=== PATIENT | female | born 2000 | race Caucasian/White ===

== ENCOUNTER 2021-10-22 09:08 | Emergency (ER) | payer OTHER ==
[~2021-10-22] VITALS: Ht 154.9 cm; Wt 45.5 kg
[2021-10-22 09:23] VITALS: TEMP 98
[2021-10-22 10:41] LABS: COLLECTION METHOD CLEAN CATCH
[2021-10-22 10:46] LABS: BASO # 0.1 K/mm3 (0.0-0.2); EOS # 0.1 K/mm3 (0.0-0.7); EOS % 1.5 % (0.0-4.0); GRAN # 3.3 K/mm3 (1.4-6.5); GRAN % 48.6 % (42.2-75.2); HEMOGLOBIN 11.5 g/dl (12.0-15.0); LYMPH # 2.7 K/mm3 (1.2-3.4); LYMPH % 40.4 % (20.0-51.0); MEAN CELL VOLUME 84 fl (80.0-95.0); MEAN CORPUSCULAR HEMOGLOBIN 29 pg (26-32); MEAN CORPUSCULAR HGB CONC 35 g/dl (33.0-37.0); MEAN PLATELET VOLUME 9.9 fl (7.4-10.4); MONO # 0.6 K/mm3 (0.1-0.6); MONO % 8.4 % (1.7-9.3); PLATELET COUNT 233 K/mm3 (130-400); RED BLOOD COUNT 3.95 M/mm3 (4.10-5.30); REDCELL DISTRIBUTION WIDTH-CV 11.8 % (11.5-14.5)
[2021-10-22 10:53] LABS: HEMATOCRIT 33.3 % (35.0-45.0)
[2021-10-22 10:59] LABS: MUCOUS Present (NOT PRESENT); URINE APPEARANCE Hazy (CLEAR/HAZY); URINE BACTERIA Rare /hpf (NONE SEEN); URINE COLOR Yellow (YELLOW); URINE RBC 0-2 /hpf (0-2)
[2021-10-22 11:00] LABS: URINE BLOOD Negative (NEGATIVE); URINE GLUCOSE Negative (NEGATIVE); URINE KETONE Negative (NEGATIVE); URINE NITRATE Negative (NEGATIVE); URINE PROTEIN(semi-quant) Negative (NEGATIVE); URINE UROBILINOGEN 0.2 E.U/dL (0.2-1.0)
[2021-10-22 11:04] LABS: ALANINE AMINOTRANSFERASE 11 U/L (0-55); ALBUMIN 4.1 gm/dL (3.5-5.0); ALKALINE PHOSPHATASE 52 U/L (40-150); ANION GAP 9 mmol/L (7-16); AST,SGOT 14 U/L (5-34); BILIRUBIN,TOTAL 0.6 mg/dL (0.2-1.2); BLOOD UREA NITROGEN 11 mg/dL (7-19); CALCIUM 9.5 mg/dL (8.4-10.2); CARBON DIOXIDE 25 mmol/L (22-29); CHLORIDE 106 mmol/L (98-107); CREATININE, serum 0.64 mg/dL (0.57-1.11); GLUCOSE 85 mg/dL (70-99); LIPASE 12 U/L (8-78); POTASSIUM 3.7 mmol/L (3.5-4.5); SODIUM 140 mmol/L (136-145); TOTAL PROTEIN 6.9 gm/dL (6.2-8.1)
[2021-10-22 11:05] LABS: C-REACTIVE PROTEIN < 0.02 mg/dL (0.00-0.50)
[2021-10-22] MEDS ORDERED: BENTYL 10MG10 MG/CAP PO (11:46)
[2021-10-22 11:57] VITALS: BP 115/75; PULSE 70
== END 2021-10-22 11:57 | disposition home or self-care (01) ==
LOC: COL.ER 09:08
PROVIDERS: Family Medicine
DX: R10.30 Lower abdominal pain, unspecified (principal); Z87.891 Personal history of nicotine dependence; Z32.02 Encounter for pregnancy test, result negative; Z20.822 Contact with and (suspected) exposure to COVID-19
CPT/HCPCS: J2405; J7120

== ENCOUNTER 2022-01-21 22:11 | Emergency (ER) | payer MEDICAID ==
[~2022-01-21] VITALS: Ht 157.5 cm; Wt 43.3 kg
[~2022-01-21 22:11] MED LIST: BENTYL 10MG10 MG/CAP PO
[2022-01-21 22:17] VITALS: BP 117/78; PULSE 92; TEMP 97.9
[2022-01-21 22:49] LABS: BASO # 0.1 K/mm3 (0.0-0.2); BASO % 0.6 % (0.0-2.0); EOS # 0.1 K/mm3 (0.0-0.7); EOS % 1.3 % (0.0-4.0); GRAN # 7.3 K/mm3 (1.4-6.5); GRAN % 70.1 % (42.2-75.2); HEMOGLOBIN 10.7 g/dl (12.5-16.0); LYMPH # 2.3 K/mm3 (1.2-3.4); MEAN CELL VOLUME 83 fl (80.0-100.0); MEAN CORPUSCULAR HEMOGLOBIN 29 pg (27-31); MEAN CORPUSCULAR HGB CONC 35 g/dl (33.0-37.0); MEAN PLATELET VOLUME 9.2 fl (7.4-10.4); MONO # 0.6 K/mm3 (0.1-0.6); MONO % 5.5 % (1.7-9.3); PLATELET COUNT 283 K/mm3 (130-400); RED BLOOD COUNT 3.64 M/mm3 (4.10-5.30); REDCELL DISTRIBUTION WIDTH-CV 12.6 % (11.5-14.5)
[2022-01-21 22:51] LABS: HEMATOCRIT 30.3 % (37.0-47.0)
[2022-01-21 23:09] LABS: ALBUMIN 3.5 gm/dL (3.5-5.0); BILIRUBIN,TOTAL 0.2 mg/dL (0.2-1.2); CALCIUM 9.4 mg/dL (8.4-10.2); CREATININE, serum 0.54 mg/dL (0.57-1.11); POTASSIUM 3.7 mmol/L (3.5-4.5); TOTAL PROTEIN 7.4 gm/dL (6.2-8.1)
== END 2022-01-22 00:01 | disposition home or self-care (01) ==
LOC: COL.ER 22:11
PROVIDERS: Nurse Practitioner Primary Care
DX: O99.891 Other specified diseases and conditions complicating pregnancy (principal); R12 Heartburn; Z28.310 Unvaccinated for COVID-19; Z3A.15 15 weeks gestation of pregnancy
CPT/HCPCS: J2550

== ENCOUNTER 2022-06-28 16:58 | Outpatient (CLI) | payer MEDICAID ==
[~2022-06-28] VITALS: Ht 157.5 cm; Wt 55.0 kg
--- NOTE | 2022-06-28 17:00 | NUR ---
1700 - PATIENT AMBULATORY TO UNIT ACCOMPANIED BY SISTER WITH COMPLAINTS OF RUQ PAIN. PATIENT ORIENTED TO ROOM AND CHANGES INTO GOWN. DENIES CONTRACTIONS, LEAKING OF FLUID, BLOODY SHOW. 1710 - PATIENT PLACED ON MONITORS. PATIENT STATES RUQ PAIN STARTED LAST NIGHT BUT HAS BEEN CONSTANT TODAY. 1725 - ORAL HYDRATION PROVIDED. 1741 - MD MONY NOTIIFIED VIA PHONE OF PATIENT ARRIVAL AND ABOVE COMPLAINTS OF RUQ PAIN, FHR CATEGORY I AND REACTIVE. TOCO TRACING SHOWING IRRITABILTY AND 2 CONTRACTIONS IN THE LAST 30 MINUTES. VS WNL. ORDERS OBTAINED FOR CMP, CBC AND UA. LABS COLLECTED ORDERED. WILL CONTINUE MONITOR.
[2022-06-28 17:30] VITALS: BP 108/77; PULSE 88; TEMP 97.9
[2022-06-28 18:00] VITALS: PULSE 89
[2022-06-28 18:15] VITALS: PULSE 80
[2022-06-28 18:26] LABS: BASO # 0.1 K/mm3 (0.0-0.2); BASO % 0.7 % (0.0-2.0); EOS # 0.1 K/mm3 (0.0-0.7); GRAN # 7.1 K/mm3 (1.4-6.5); HEMOGLOBIN 11.6 g/dl (12.5-16.0); LYMPH # 2.1 K/mm3 (1.2-3.4); LYMPH % 20.6 % (20.0-51.0); MEAN CELL VOLUME 88 fl (80.0-100.0); MEAN CORPUSCULAR HEMOGLOBIN 30 pg (27-31); MEAN CORPUSCULAR HGB CONC 34 g/dl (33.0-37.0); MEAN PLATELET VOLUME 9.7 fl (7.4-10.4); MONO # 0.6 K/mm3 (0.1-0.6); MONO % 6.3 % (1.7-9.3); PLATELET COUNT 200 K/mm3 (130-400); RED BLOOD COUNT 3.86 M/mm3 (4.10-5.30); REDCELL DISTRIBUTION WIDTH-CV 13.1 % (11.5-14.5)
[2022-06-28 18:27] LABS: HEMATOCRIT 34.1 % (37.0-47.0)
[2022-06-28 18:30] VITALS: PULSE 84
--- NOTE | 2022-06-28 18:35 | NUR ---
REPORT RCVD FROM CHRISTINE HAINES. THE PATIENT IS LAYING IN BED AT THIS TIME, STILL COMPLAINS OF A CONSTANT PAIN IN THE RUQ. SHE STATES IT IS NOT RADIATING, IS PAINFUL AND FEELS NUMB. CONTINUES TO FEEL MOVEMENT, EFM CATEGORY 1. PATIENT VSS. PT DENIES LEAKING OF FLUIDS, BLOODY DISCHARGE AND FEELS NO CONTRACTIONS. SUPPORT PERSON IS AT BEDSIDE AND DENIES ANY NEEDS AT THIS TIME.
[2022-06-28 18:38] LABS: ALBUMIN 3.3 gm/dL (3.5-5.0); BILIRUBIN,TOTAL 0.4 mg/dL (0.2-1.2); CALCIUM 9.3 mg/dL (8.4-10.2); CREATININE, serum 0.58 mg/dL (0.57-1.11); POTASSIUM 3.9 mmol/L (3.5-4.5); TOTAL PROTEIN 7.2 gm/dL (6.2-8.1)
[2022-06-28 18:41] LABS: COLLECTION METHOD CLEAN CATCH
[2022-06-28 18:44] LABS: URINE APPEARANCE Clear (CLEAR/HAZY); URINE COLOR Yellow (YELLOW)
[2022-06-28 18:46] LABS: MUCOUS Present (NOT PRESENT); SQUAMOUS EPITHELIAL 0-2 /hpf (0-10); URINE BACTERIA Rare /hpf (NONE SEEN); URINE BLOOD Negative (NEGATIVE); URINE GLUCOSE Negative (NEGATIVE); URINE KETONE Negative (NEGATIVE); URINE NITRATE Negative (NEGATIVE); URINE PROTEIN(semi-quant) Negative (NEGATIVE); URINE RBC 0-2 /hpf (0-2); URINE UROBILINOGEN 0.2 E.U/dL (0.2-1.0); URINE WBC 0-2 /hpf (0-2)
[2022-06-28 19:00] VITALS: PULSE 82
--- NOTE | 2022-06-28 19:10 | NUR ---
185: NOTIFIED DR. SYKES OF UNREMARKABLE PT LABS. GAVE VERBAL ORDERS FOR DISCHARGE. 1899: PT OFF MONITOR FOR DISCHARGE. DISCHARGE INSTRUCTIONS GIVEN, PT VERBALIZED/WRITES UNDERSTANDING OF DISCHARGE INSTRUCTIONS. 1909: PT DISCHARGED AND ESCORTED OUT FROM UNIT WITH SISTER.
== END 2022-06-28 19:10 | disposition home or self-care (01) ==
LOC: LDRO 16:58
PROVIDERS: Obstetrics & Gynecology
DX: O99.891 Other specified diseases and conditions complicating pregnancy (principal); R10.11 Right upper quadrant pain; Z3A.37 37 weeks gestation of pregnancy

== ENCOUNTER 2022-07-02 02:15 | Inpatient (IN) | payer MEDICAID ==
[~2022-07-02] VITALS: Ht 157.5 cm; Wt 55.5 kg
[2022-07-02] VITALS (26 sets, daily range): BP systolic 96–130; BP diastolic 50–85; PULSE 59–120; TEMP 1
--- NOTE | 2022-07-02 02:20 | NUR ---
G3L0. 38.1. Clean gown on. EFM and TOCO explained and applied. Pt was sent home before midnight tonight and states she tried to take tylenol and use a hot shower for pain relief but states her contractions just got worse. Denies leaking of fluids or vaginal bleeding and reports good movment. Plan of care explained. Pt's sister at bedside as her support person.
--- NOTE | 2022-07-02 03:55 | NUR ---
SVE unchanged. Pt still really hurting and reporting pain a 10/21. Pt would like to stay an additional hour and get her cervix rechecked. 0500: SVE unchanged. Pt still hurting and stating her pain is getting worse and contractions are getting more intense. 0509: called and updated on pt's status. Admit orders received. See physican notification. Pt and sister updated on new plan of care. 0540: IV started and labs obtained via IV site.
[2022-07-02 06:45] LABS: BASO # 0.1 K/mm3 (0.0-0.2); BASO % 0.6 % (0.0-2.0); EOS # 0.1 K/mm3 (0.0-0.7); GRAN # 7.4 K/mm3 (1.4-6.5); GRAN % 65.1 % (42.2-75.2); HEMOGLOBIN 11.7 g/dl (12.5-16.0); LYMPH % 25.9 % (20.0-51.0); MEAN CELL VOLUME 87 fl (80.0-100.0); MEAN CORPUSCULAR HEMOGLOBIN 30 pg (27-31); MEAN CORPUSCULAR HGB CONC 34 g/dl (33.0-37.0); MONO # 0.7 K/mm3 (0.1-0.6); MONO % 6.3 % (1.7-9.3); PLATELET COUNT 211 K/mm3 (130-400); REDCELL DISTRIBUTION WIDTH-CV 12.7 % (11.5-14.5)
[2022-07-02 06:50] LABS: HEMATOCRIT 34.1 % (37.0-47.0)
--- NOTE | 2022-07-02 15:55 | NUR ---
1510- PATIENT COMPLETE A TTHIS TIME. 1516- NOTIFIED OF CHANGE IN STATUS, SEE PHYSICIAN NOTIFICATION. 1538- AT BEDSIDE FOR DELIVERY. BANUELOS DISCONTINUED, PATIENT REPOSITIONED FOR DELIVERY. 1541- PATIENT BEGINS PUSHING WITH CONTRACTIONS. 1552- SPONTANEOUS DELIVERY OF HEAD AND BODY. 1555- SPONTANEOUS DELIVERY OF PLACENTA AT THIS TIME.
--- NOTE | 2022-07-02 18:20 | NUR ---
PATIENT REQUESTING TO USE RESTROOM. PATIENT ATTEMPTS TO WALK BUT DOES NOT HAVE FULL WEIGHT BEARING ON RIGHT LEG. PATIENT TAKEN TO RESTROOM ON DANA STEADY. PATIENT UNABLE TO VOID AT THIS TIME HAD A BOWEL MOVEMENT. PATIENT ASSISTED BACK INTO BED.
[2022-07-03 07:13] LABS: HEMATOCRIT 27.1 % (37.0-47.0); HEMOGLOBIN 9.4 g/dl (12.5-16.0)
[2022-07-03 07:40] VITALS: BP 103/71; PULSE 73; TEMP 97.7
[2022-07-03] MEDS ORDERED: IBU600 MG PO (09:15)
[2022-07-03] MEDS ORDERED: PERCOCET 325 MG1 TA2 PO (09:16)
--- NOTE | 2022-07-03 11:05 | NUR ---
Initial visit; Patient thanked Licensed Land Surveyor for offering congratulations and God's blessings for the of her daughter. Licensed Land Surveyor wished mom well.
--- NOTE | 2022-07-03 13:29 | NUR ---
THIS NURSE ENCOURAGED THE PATIENT TO ORDER FOOD AND EAT. PATIENT HAD IVETH CRACKERS THIS MORNING BUT HAS NOT HAD ANYTHING ELSE TO EAT. PATIENT CRYING AT THIS TIME DUE TO WORRYING ABOUT HER . NURSE COMFORTED HER AT THIS TIME.
[2022-07-03 19:00] VITALS: BP 103/65; PULSE 74; TEMP 98
[2022-07-04 08:37] VITALS: BP 119/67; PULSE 83; TEMP 97.8
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
[2022-07-04 16:20] LABS: COLLECTION METHOD CLEAN CATCH
[2022-07-04 16:24] LABS: PH 6.5 (5.0-8.5); URINE APPEARANCE Clear (CLEAR/HAZY); URINE COLOR Yellow (YELLOW); URINE GLUCOSE Negative (NEGATIVE); URINE KETONE Negative (NEGATIVE); URINE NITRATE Negative (NEGATIVE); URINE PROTEIN(semi-quant) Negative (NEGATIVE); URINE UROBILINOGEN 0.2 E.U/dL (0.2-1.0)
[2022-07-04 16:25] LABS: URINE BLOOD 2+ (NEGATIVE)
[2022-07-04 16:26] LABS: MUCOUS Present (NOT PRESENT); SQUAMOUS EPITHELIAL 0-2 /hpf (0-10); URINE BACTERIA None Seen /hpf (NONE SEEN)
== END 2022-07-04 16:00 | disposition home or self-care (01) | DRG 806 ==
LOC: LDRO 02:15 → OB 05:25 → LDR 05:25 → OB 19:30
PROVIDERS: Obstetrics & Gynecology; ADMIT Obstetrics & Gynecology
PROC: 10E0XZZ Delivery of Products of Conception, External Approach (ICD-10-PCS; principal; 2022-07-02)
PROC: 0HQ9XZZ Repair Perineum Skin, External Approach (ICD-10-PCS; 2022-07-02)
DX: O99.344 Other mental disorders complicating childbirth (principal); D62 Acute posthemorrhagic anemia; Z37.0 Single live birth; F41.9 Anxiety disorder, unspecified; Z3A.38 38 weeks gestation of pregnancy; Z67.91 Unspecified blood type, Rh negative; O70.0 First degree perineal laceration during delivery; O99.03 Anemia complicating the puerperium
CPT/HCPCS: J2590; J2791; J2795; J3010; J7120

== ENCOUNTER → 2023-11-24 | Outpatient (CLI) | payer MEDICAID ==
[~2023-11-24] MED LIST changes: +FLEXERIL 1010 MG/TAB PO; +IBU600 MG PO; +PERCOCET 325 MG1 TA2 PO
== END ==
LOC: COL.RAD 15:43
DX: R63.4 Abnormal weight loss (principal)